=== PATIENT | male | born 1950 | race Caucasian/White ===

== ENCOUNTER 2023-05-02 11:29 | Emergency (ER) | payer MEDICARE ==
[~2023-05-02] VITALS: Ht 177.8 cm; Wt 110.0 kg
[2023-05-02 11:35] VITALS: BP 171/80
[2023-05-02] MEDS ORDERED: dexamethasone sod phosphate 10mg/ml inj IM STA (13:34)
[2023-05-02] MEDS ORDERED: LIDOcaine 5% patch TP STA (13:34)
[2023-05-02 14:22] LABS: BASOPHILS % (AUTO) 0.2 % (0-1); EOSINOPHILS % (AUTO) 0.1 % (0-6); HEMATOCRIT 44.3 % (42.0-52.0); HEMOGLOBIN 15.1 g/dl (14.0-17.9); LYMPHOCYTES # (AUTO) 0.8 X10'3 (1.1-4.8); LYMPHOCYTES % (AUTO) 9.4 % (21-51); MEAN CORPUSCULAR HEMOGLOBIN 32.4 PG (27.0-31.0); MEAN CORPUSCULAR VOLUME 95.3 FL (78-98); MEAN PLATELET VOLUME 8.9 FL (7.4-10.4); MONOCYTES # (AUTO) 0.3 X10'3 (0-0.9); MONOCYTES % (AUTO) 3.4 % (2-12); NEUTROPHILS # (AUTO) 7.5 X10'3 (1.8-7.7); NEUTROPHILS % (AUTO) 86.9 % (42-75); PLATELET COUNT 174 X10'3 (140-440); RED BLOOD COUNT 4.65 X10'6 (4.70-6.10); RED CELL DISTRIBUTION WIDTH 13.4 % (11.5-14.5); WHITE BLOOD COUNT 8.7 X10'3 (4.5-11.0)
[2023-05-02 14:26] LABS: CLARITY,URINE CLEAR (Clear); COLOR,URINE YELLOW (Yellow); GLUCOSE, URINE NEGATIVE (Neg); KETONES,URINE NEGATIVE (Neg); LEUKOCYTE ESTERASE ,URINE SMALL (Neg); NITRITES, URINE NEGATIVE (Neg); OCCULT BLOOD,URINE TRACE-INTACT (Neg); PROTEIN,URINE NEGATIVE (Neg); UROBILINOGEN,URINE 0.2 E.U/dL (0.2-1.0)
[2023-05-02 14:27] LABS: UA COLLECTION TYPE CLN CATCH MIDSTREAM
[2023-05-02 14:28] LABS: ALANINE AMINOTRANSFERASE 55 U/L (12-78); ALBUMIN 4.1 G/DL (3.4-5.0); ALBUMIN/GLOBULIN RATIO 1.2 (1.1-1.5); ALKALINE PHOSPHATASE 82 IU/L (46-116); ANION GAP 13 (8-16); ASPARTATE AMINO TRANSFERASE 32 U/L (10-37); BILIRUBIN,TOTAL 0.8 MG/DL (0.1-1.0); BLOOD UREA NITROGEN 15 MG/DL (7-18); BUN/CREATININE RATIO 10.9 (10.0-20.0); CHLORIDE 102 MMOL/L (99-107); CREATININE 1.37 MG/DL (0.60-1.10); GLUCOSE 130 MG/DL (70-104); POTASSIUM 3.8 MMOL/L (3.5-5.1); SODIUM 141 MMOL/L (135-145); TOTAL CARBON DIOXIDE 26.5 MMOL/L (24-32); TOTAL PROTEIN 7.6 G/DL (6.4-8.2); eGFR 51 ML/MIN
[2023-05-02 14:33] LABS: BACTERIA,URINE FEW /HPF (Neg); MUCUS STRANDS MODERATE /LPF (Neg); RBC,URINE 0-2 /HPF (0-2); SQUAMOUS EPITHELIAL CELL,UR FEW /LPF (FEW)
[2023-05-02] MEDS ORDERED: morphine 4 MG/ML inj SYRINge IV ONE (15:05)
[2023-05-02] MEDS ORDERED: ondansetron 4mg rapidly disintigrating tab PO ONE (15:05)
[2023-05-02] MEDS ORDERED: DEC4T PO ×3 (16:21→17:51)
[2023-05-02] MEDS ORDERED: CEPH-585 PO ×3 (16:21→17:51)
[2023-05-02] MEDS ORDERED: HYDR-3973 PO ×3 (16:21→17:51)
--- NOTE | 2023-05-02 17:53 | NUR ---
PATIENT'S CALLED TO INFORM THAT [facility] ON [address] IS HAVING COMPUTER PROBLEMS, SO PATIENT WOULD LIKE RX SENT TO [facility] ON [facility]. PROVIDER JUAN MIGUEL SENT RX TO [facility] FOR PATIENT.
== END 2023-05-02 17:02 | disposition home or self-care (01) ==
LOC: ER 11:30
DX: N39.0 Urinary tract infection, site not specified (principal); M51.35 Other intervertebral disc degeneration, thoracolumbar region
CPT/HCPCS: 36415; 72131; 76770; 80053; 81001; 85025; 87088; 96372; 96374; 99285; J1100; J2270